=== PATIENT | male | born 1950 | race Caucasian/White ===

== ENCOUNTER 2019-03-18 16:04 | Observation (INO) | payer MEDICARE ==
[~2019-03-18] VITALS: Ht 177.8 cm; Wt 108.9 kg
[~2019-03-18 16:04] MED LIST: ASPI-1005 PO; ATOR40TA69 PO; LISI10TA7 PO; METO-408 PO; OMEP20CA12 PO; PRAS10TA6 PO
[2019-03-18] MEDS ORDERED: NITROGLYCERIN 1GM/1 INCH PACKET TD ONE (16:19)
[2019-03-18 16:24] LABS: BASOPHILS % (AUTO) 0.9 % (0.0-5.0); EOSINOPHILS % (AUTO) 2.4 % (0.0-8.0); HEMATOCRIT 43.2 % (42-54); MEAN CORPUSCULAR VOLUME 85.2 fL (79-99); MONOCYTES % (AUTO) 6.7 % (3.0-13.0); NEUTROPHILS % (AUTO) 57.5 % (40.0-77.0); PLATELET COUNT (AUTO) 255 K/uL (130-400); RED BLOOD CELL COUNT(AUTO) 5.07 MIL/uL (4.50-6.20); RED CELL DISTRIBUTION WIDTH 12.7 % (11.0-15.5); WHITE BLOOD COUNT (AUTO) 5.8 K/uL (4.8-10.8)
[2019-03-18 16:38] LABS: CREATININE 1.3 mg/dL (0.5-1.5); INR 1.01 (0.85-1.15); PARTIAL THROMBOPLASTIN TIME 28.4 SEC (26.3-35.5); POTASSIUM 4.5 mmol/L (3.5-5.1); PROTHROMBIN TIME 10.6 SEC (9.6-11.6)
[2019-03-18 16:41] LABS: ALBUMIN 3.8 g/dL (3.5-5.0); BILIRUBIN,TOTAL 0.5 mg/dL (0.2-1.0); TOTAL PROTEIN, SERUM 7.2 g/dL (6.0-8.3)
[2019-03-18] MEDS ORDERED: ACETAMINOPHEN 325 MG TAB ONE ×2 (17:23→20:47)
[2019-03-18] MEDS ORDERED: TRAMADOL HCL 50 MG TABLET PO PRN ×2 (20:45)
[2019-03-18] MEDS: NITROGLYCERIN 1GM/1 INCH PACKET TD SCH (20:45)
[2019-03-18] MEDS: FAMOTIDINE 20MG TAB 20 MG TAB PO SCH (21:00)
[2019-03-18] MEDS ORDERED: SODIUM CHLORIDE 0.9% 1000ML 1,000 ML IV ONE (22:21)
[2019-03-19] VITALS (13 sets, daily range): BP systolic 96–158; BP diastolic 49–77
--- NOTE | 2019-03-19 00:10 | NUR ---
ADMIT PT ADMITTED TO ROOM 420, AAOX3. CLAIMS OF HEADACHE. NOTED BRUISING AND EDEMA TO RT GROIN AREA AND IS TENDER TO TOUCH.ADMISSION CARE DONE. ADMISSION DATA BASE COMPLETED. CONTINUED IVF OF NS FROM ER REGULATED AT 100CC/HR VIA PIV G20 TO RLA. UPDATED PT'S MEDS IN THE COMPUTER. MEDICATED WITH ULTRAM PO FOR PAINS. PLACE NPO FROM NOW. TELE MONITORING STARTED. SCD'S APPLIED TO BLE. MARINE REPORTER IN TO DRAW BLOOD. KEPT COMFORTABLE IN BED. ORIENTED TO ROOM AND UNIT. CONSENT FOR HEART CATH DISCUSSED AND SIGNED BY PT, WITNESSED BY MEAL GRINDER TENDER. PLACED IN CHART. IN FOR MORE CARE AND MANAGEMENT. Addendum: 03/19/19 at 0101 by ESTRELLA YIN RN RN Amended: Links added.
[2019-03-19] MEDS: ACETAMINOPHEN 325 MG TAB PO PRN ×3 (03:26→18:34)
--- NOTE | 2019-03-19 03:26 | NUR ---
H/A PT CALLS FOR PAIN MEDICATION FOR HEADACHE. IT IS TOO SOON FOR TRAMADOL DOSE. TYLENOL PO GIVEN WITH SIPS OF WATER. KEPT NPO OTHERWISE. WILL RE-ASSESS PT. Addendum: 03/19/19 at 0404 by ESTRELLA YIN RN RN Amended: Links added.
[2019-03-19] MEDS: NITROGLYCERIN 1GM/1 INCH PACKET TD SCH ×3 (04:25→21:24)
--- NOTE | 2019-03-19 05:09 | NUR ---
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 REFERRED PT'S PAIN MEDS PT IS NPO. NEW MED ORDER GIVEN, PLEASE REFER TO CPOE. PT DENIES ANY NEEDS FOR PAIN MEDICATION AT THIS TIME.
[2019-03-19] MEDS ORDERED: MORPHINE SULFATE 2 MG/ML 1ML SYG IVP PRN (05:15)
[2019-03-19] MEDS: FAMOTIDINE 20MG TAB 20 MG TAB PO SCH ×2 (09:00→21:24)
[2019-03-19] MEDS: ASPIRIN 81MG TAB.CHEW PO SCH (10:18)
[2019-03-19] MEDS: SODIUM CHLORIDE 0.9% 1000ML 1,000 ML IV SCH ×3 (10:32→23:50)
[2019-03-19] MEDS ORDERED: PRASUGREL HCL 10 MG TABLET PO SCH (12:00)
--- NOTE | 2019-03-19 13:11 | NUR ---
Initial Assessment Patient lives with spouse, Lilibeth Bradford, . He has no home service. DME: [facility]. Patient is able to complete ADL's independently and drives. [facility] in [place]. DCP is home. Addendum: 03/19/19 at 1316 by SADIE VERDUZCO SS Amended: Links added.
[2019-03-19] MEDS ORDERED: NITROGLYCERIN 2 MG/VIAL VIAL IV ONE (14:13)
[2019-03-19] MEDS ORDERED: HEPARIN SODIUM 1000UNIT/ML 10ML VIAL ONE (14:13)
[2019-03-19] MEDS ORDERED: SODIUM BICARB 50MEQ 50ML VIAL ONE (14:13)
[2019-03-19] MEDS ORDERED: IOHEXOL 350 MG/ML 100ML INFUS..BTL IV ONE (14:14)
[2019-03-19] MEDS ORDERED: MIDAZOLAM HCL 1 MG/ML 2ML VIAL ONE ×3 (14:14→14:57)
[2019-03-19] MEDS ORDERED: IOHEXOL-350 50ML VIAL IV ONE (14:14)
[2019-03-19] MEDS ORDERED: LIDOCAINE HCL 2% 20ML ONE (14:14)
[2019-03-19] MEDS ORDERED: MEPERIDINE-PF 25 MG/ML SYG ONE ×3 (14:14→14:57)
[2019-03-19] MEDS ORDERED: NICARDIPINE HCL 25 MG/10 ML ML IV ONE (14:34)
--- NOTE | 2019-03-19 18:35 | NUR ---
pulled last 2ml from tr band and no bleeding noted. removed tr and applied [id number] gauze secured with tape. utilizing tgeach back method, instructed patient to guard his right wrist/hand for a couple of hours to ensure no bleeding due to bleeding during the removal of air from balloon. pt and verbalized understanding. rt radial pulse strong w cap refill good. 02sat =99% on rt index finger.
[2019-03-19] MEDS ORDERED: ATORVASTATIN CALCIUM 40 MG TABLET PO SCH (21:00)
[2019-03-19] MEDS: METOPROLOL TARTRATE 25 MG TAB PO SCH (21:24)
[2019-03-20 03:00] VITALS: BP 102/66
[2019-03-20] MEDS: NITROGLYCERIN 1GM/1 INCH PACKET TD SCH ×2 (04:45→09:28)
[2019-03-20 06:18] LABS: BASOPHILS % (AUTO) 0.5 % (0.0-5.0); EOSINOPHILS % (AUTO) 3.1 % (0.0-8.0); HEMATOCRIT 37.9 % (42-54); LYMPHOCYTES % (AUTO) 39.6 % (21.0-51.0); MEAN CORPUSCULAR HEMOGLOBIN 28.7 pg (27.0-33.0); MEAN CORPUSCULAR HGB CONC 33.5 g/dL (32.0-36.0); MEAN CORPUSCULAR VOLUME 85.7 fL (79-99); MONOCYTES % (AUTO) 7.6 % (3.0-13.0); NEUTROPHILS % (AUTO) 48.4 % (40.0-77.0); PLATELET COUNT (AUTO) 203 K/uL (130-400); RED BLOOD CELL COUNT(AUTO) 4.42 MIL/uL (4.50-6.20); RED CELL DISTRIBUTION WIDTH 12.4 % (11.0-15.5); WHITE BLOOD COUNT (AUTO) 3.8 K/uL (4.8-10.8)
[2019-03-20] MEDS: SODIUM CHLORIDE 0.9% 1000ML 1,000 ML IV SCH ×2 (06:30→12:28)
[2019-03-20 06:34] LABS: ALBUMIN 3.1 g/dL (3.5-5.0); BILIRUBIN,TOTAL 0.5 mg/dL (0.2-1.0); CREATININE 1.2 mg/dL (0.5-1.5); POTASSIUM 4.5 mmol/L (3.5-5.1); TOTAL PROTEIN, SERUM 5.9 g/dL (6.0-8.3)
[2019-03-20 07:30] VITALS: BP_SYST 108; BP_SYST 110; BP_DIAS 69; BP_DIAS 71
[2019-03-20] MEDS ORDERED: LISINOPRIL 10 MG TABLET PO SCH (09:00)
[2019-03-20] MEDS ORDERED: PANTOPRAZOLE SODIUM 40 MG TABLET.DR PO SCH (09:00)
[2019-03-20] MEDS ORDERED: PRASUGREL HCL 10 MG TABLET PO SCH (09:00)
[2019-03-20] MEDS ORDERED: NITROGLYCERIN 1GM/1 INCH PACKET TD SCH (09:30)
[2019-03-20] MEDS: METOPROLOL TARTRATE 25 MG TAB PO SCH (10:08)
[2019-03-20] MEDS: ASPIRIN 81MG TAB.CHEW PO SCH (10:08)
[2019-03-20] MEDS: FAMOTIDINE 20MG TAB 20 MG TAB PO SCH (10:08)
[2019-03-20 11:00] VITALS: BP 119/66
[2019-03-20] MEDS ORDERED: METO-408 PO (11:52)
[2019-03-20] MEDS ORDERED: AMLO2.5T2 PO (11:52)
[2019-03-21] MEDS ORDERED: AMLODIPINE BESYLATE 2.5 MG TAB PO SCH (09:00)
== END 2019-03-20 13:55 | disposition home or self-care (01) ==
LOC: EDH 16:04 → EDHIP 20:31 → 4CH 23:30
PROVIDERS: ADMIT Internal Medicine; ATTEND Internal Medicine
DX: I25.110 Atherosclerotic heart disease of native coronary artery with unstable angina pectoris (principal); I10 Essential (primary) hypertension; E66.9 Obesity, unspecified; R42 Dizziness and giddiness; E78.5 Hyperlipidemia, unspecified; E78.00 Pure hypercholesterolemia, unspecified; R59.0 Localized enlarged lymph nodes; Z90.89 Acquired absence of other organs; Z90.79 Acquired absence of other genital organ(s); Z85.46 Personal history of malignant neoplasm of prostate; Z95.5 Presence of coronary angioplasty implant and graft; Z79.82 Long term (current) use of aspirin; Z79.899 Other long term (current) drug therapy; Z88.0 Allergy status to penicillin; Z88.1 Allergy status to other antibiotic agents; Z88.2 Allergy status to sulfonamides; Z68.33 Body mass index [BMI] 33.0-33.9, adult
CPT/HCPCS: 36415 ×2; 76882; 80053 ×2; 84484 ×4; 85025 ×2; 85610; 85730; 93005 ×2; 93454; 93970; 96360; 96361; 99284; C1769; C1894 ×2; G0378 ×5; J1644 ×2; J2175 ×3; J2250 ×3; J3490 ×4; J7030 ×4; Q9965; Q9967 ×2; 99156; 99157

== ENCOUNTER → 2019-04-09 | Outpatient (CLI) | payer MEDICARE ==
[~2019-04-09] MED LIST changes: +AMLO2.5T2 PO; -LISI10TA7 PO
== END | disposition home or self-care (01) ==
LOC: SLP 20:38
PROVIDERS: ATTEND Internal Medicine Cardiovascular Disease
DX: G47.33 Obstructive sleep apnea (adult) (pediatric) (principal)
CPT/HCPCS: 95810

== ENCOUNTER → 2020-01-21 | Outpatient (CLI) | payer MEDICARE | END | disposition home or self-care (01) | LOC: RAH 12:50 | PROVIDERS: ATTEND Internal Medicine Cardiovascular Disease | DX: M50.122 Cervical disc disorder at C5-C6 level with radiculopathy (principal); I25.10 Atherosclerotic heart disease of native coronary artery without angina pectoris; R20.2 Paresthesia of skin; Z95.5 Presence of coronary angioplasty implant and graft; M48.02 Spinal stenosis, cervical region | CPT/HCPCS: 72141 ==

== ENCOUNTER → 2020-12-02 | Outpatient (CLI) | payer MEDICARE | END | disposition home or self-care (01) | LOC: SHCH 07:47 | PROVIDERS: ATTEND Internal Medicine Cardiovascular Disease | DX: I35.8 Other nonrheumatic aortic valve disorders (principal); I51.7 Cardiomegaly; E78.5 Hyperlipidemia, unspecified | CPT/HCPCS: 93306; 93356 ==

== ENCOUNTER → 2022-10-27 | Outpatient (CLI) | payer MEDICARE ==
[2022-10-27 12:39] LABS: BASOPHILS # (AUTO) 0.03 K/uL (0.00-0.20); BASOPHILS % (AUTO) 0.7 % (0.0-5.0); EOSINOPHILS # (AUTO) 0.06 K/uL (0.00-0.70); EOSINOPHILS % (AUTO) 1.3 % (0.0-8.0); HEMATOCRIT 42.4 % (42-54); IMMATURE GRANULOCYTE ABSOLUTE 0.02 K/uL (0-1); LYMPHOCYTES # (AUTO) 1.7 K/uL (1.0-4.8); LYMPHOCYTES % (AUTO) 38.2 % (21.0-51.0); MEAN CORPUSCULAR HEMOGLOBIN 29.6 pg (27.0-33.0); MEAN CORPUSCULAR HGB CONC 32.8 g/dL (32.0-36.0); MEAN CORPUSCULAR VOLUME 90.2 fL (79-99); MONOCYTES # (AUTO) 0.4 K/uL (0.1-1.0); MONOCYTES % (AUTO) 8.6 % (3.0-13.0); NEUTROPHILS # (AUTO) 2.3 K/uL (1.8-7.7); NEUTROPHILS % (AUTO) 50.8 % (40.0-77.0); PLATELET COUNT (AUTO) 229 K/uL (130-400); RED CELL DISTRIBUTION WIDTH 12.6 % (11.0-15.5); WHITE BLOOD COUNT (AUTO) 4.5 K/uL (4.8-10.8)
[2022-10-27 12:57] LABS: ALBUMIN 3.9 g/dL (3.5-5.0); BILIRUBIN,TOTAL 0.5 mg/dL (0.2-1.0); CREATININE 1.1 mg/dL (0.5-1.5); MAGNESIUM 1.9 mg/dL (1.80-2.40); POTASSIUM 4.9 mmol/L (3.5-5.1); T4 (THYROXINE) 6.7 ug/dL (4.7-13.3); THYROID STIMULATING HORMONE 1.63 uIU/mL (0.36-3.74); TOTAL PROTEIN, SERUM 7.1 g/dL (6.0-8.3)
== END | disposition home or self-care (01) ==
LOC: LAB 10:22
PROVIDERS: ATTEND Physician Assistant
DX: I10 Essential (primary) hypertension (principal); E78.5 Hyperlipidemia, unspecified
CPT/HCPCS: 36415; 80053; 80061; 83735; 83880; 84436; 84443; 84479; 84484; 85025

== ENCOUNTER → 2023-01-17 | Outpatient (CLI) | payer MEDICARE ==
[~2023-01-17] MED LIST changes: +REGADENOSON 0.4 MG/5 ML PF SYG IVP ONE
== END | disposition home or self-care (01) ==
LOC: SHCH 08:30
PROVIDERS: ATTEND Internal Medicine Cardiovascular Disease
DX: I25.119 Atherosclerotic heart disease of native coronary artery with unspecified angina pectoris (principal)
CPT/HCPCS: 78452; 96374; 93017; J2785; A9500 ×2

== ENCOUNTER 2023-04-07 07:33 | Day surgery (SDC) | payer MEDICARE ==
[2023-04-05 10:08] LABS: BASOPHILS # (AUTO) 0.02 K/uL (0.00-0.20); BASOPHILS % (AUTO) 0.2 % (0.0-5.0); EOSINOPHILS # (AUTO) 0.02 K/uL (0.00-0.70); EOSINOPHILS % (AUTO) 0.2 % (0.0-8.0); IMMATURE GRANULOCYTE ABSOLUTE 0.07 K/uL (0-1); LYMPHOCYTES # (AUTO) 1.9 K/uL (1.0-4.8); LYMPHOCYTES % (AUTO) 22.9 % (21.0-51.0); MEAN CORPUSCULAR HEMOGLOBIN 29.6 pg (27.0-33.0); MEAN CORPUSCULAR HGB CONC 33.3 g/dL (32.0-36.0); MONOCYTES # (AUTO) 0.4 K/uL (0.1-1.0); MONOCYTES % (AUTO) 4.7 % (3.0-13.0); NEUTROPHILS # (AUTO) 5.8 K/uL (1.8-7.7); NEUTROPHILS % (AUTO) 71.1 % (40.0-77.0); PLATELET COUNT (AUTO) 242 K/uL (130-400); RED BLOOD CELL COUNT(AUTO) 4.83 MIL/uL (4.50-6.20); RED CELL DISTRIBUTION WIDTH 12.9 % (11.0-15.5); WHITE BLOOD COUNT (AUTO) 8.1 K/uL (4.8-10.8)
[2023-04-05 10:11] LABS: APPEARANCE,URINE CLEAR (CLEAR); BILIRUBIN,URINE NEGATIVE (NEGATIVE); COLOR,URINE YELLOW (YELLOW); GLUCOSE, URINE (UA) NEGATIVE (NEGATIVE); KETONES,URINE NEGATIVE (NEGATIVE); LEUKOCYTE ESTERASE ,URINE NEGATIVE Leu/uL (NEGATIVE); NITRATE,URINE NEGATIVE (NEGATIVE); OCCULT BLOOD,URINE NEGATIVE (NEGATIVE); PH,URINE 5.5 (5.0-8.0); PROTEIN,URINE NEGATIVE (NEGATIVE); UROBILINOGEN,URINE 0.2 mg/dL (0.2-1.0)
[2023-04-05 10:12] LABS: ADD UA MICROSCOPIC NO
[2023-04-05 10:20] LABS: CREATININE 1.1 mg/dL (0.5-1.5); POTASSIUM 4.3 mmol/L (3.5-5.1)
[2023-04-05 10:22] VITALS: BP 146/76; PULSE 71; RESP 16
[2023-04-05 10:22] LABS: INR <= 0.93 (0.85-1.15); PROTHROMBIN TIME 10.7 SEC (9.6-11.6)
[2023-04-05 10:23] LABS: PARTIAL THROMBOPLASTIN TIME 29.3 SEC (26.3-35.5)
[2023-04-05 10:34] LABS: B-TYPE NATRIURETIC PEPTIDE 25 pg/mL (0-100)
[2023-04-07] VITALS (11 sets, daily range): BP systolic 126–147; BP diastolic 69–84; PULSE 61–78; RESP 10–19
[~2023-04-07] VITALS: Ht 175.3 cm; Wt 106.0 kg
[~2023-04-07 07:33] MED LIST changes: +AEC81 PO; -AMLO2.5T2 PO; -ASPI-1005 PO; +ATOR10 PO; -ATOR40TA69 PO; +MULT-1367 PO; -PRAS10TA6 PO; +PRED10TA3 PO; -REGADENOSON 0.4 MG/5 ML PF SYG IVP ONE
[2023-04-07] MEDS ORDERED: NITROGLYCERIN 0.4 MG SL TAB SL PRN (09:00)
[2023-04-07] MEDS: NITROGLYCERIN 0.4 MG SL TAB SL ONE (09:02)
[2023-04-07] MEDS: 0.9%NACL 1000ML 1,000 ML IV ONE (09:03)
[2023-04-07] MEDS ORDERED: ACETAMINOPHEN 500 MG TABLET ONE (10:15)
[2023-04-07] MEDS: ACETAMINOPHEN 500 MG TABLET PO ONE (10:20)
[2023-04-07] MEDS ORDERED: HEPARIN 10,000 UNIT/10ML (1,000 UNIT/ML) VIAL ONE (11:12)
[2023-04-07] MEDS ORDERED: IOHEXOL-350 50ML VIAL IV ONE (11:12)
[2023-04-07] MEDS ORDERED: NITROGLYCERIN 50MG VIAL ONE (11:12)
[2023-04-07] MEDS ORDERED: LIDOCAINE HCL 400MG/20ML VIAL ONE (11:12)
[2023-04-07] MEDS ORDERED: IOHEXOL 350 MG/ML 100ML INFUS..BTL IV ONE (11:12)
[2023-04-07] MEDS ORDERED: SODIUM BICARB 50MEQ 50ML VIAL 50 ML ONE (11:12)
[2023-04-07] MEDS ORDERED: NICARDIPINE 25MG INJ IV ONE (11:29)
[2023-04-07] MEDS ORDERED: MIDAZOLAM HCL 1 MG/ML 2ML VIAL ONE ×4 (11:35→12:12)
[2023-04-07] MEDS ORDERED: MEPERIDINE-PF 25 MG/ML SYG ONE ×4 (11:35→12:12)
[2023-04-07] MEDS ORDERED: CLOPIDOGREL 300MG TAB ONE (12:47)
[2023-04-07] MEDS ORDERED: 0.9%NACL 1000ML 1,000 ML IV SCH (13:00)
== END 2023-04-07 17:35 | disposition home or self-care (01) ==
LOC: DAH 07:33
PROVIDERS: ATTEND Internal Medicine Cardiovascular Disease
DX: R94.39 Abnormal result of other cardiovascular function study (principal); I25.110 Atherosclerotic heart disease of native coronary artery with unstable angina pectoris; I10 Essential (primary) hypertension; E78.5 Hyperlipidemia, unspecified; G47.33 Obstructive sleep apnea (adult) (pediatric); Z87.891 Personal history of nicotine dependence; Z72.89 Other problems related to lifestyle; Z79.01 Long term (current) use of anticoagulants; Z88.0 Allergy status to penicillin; Z79.1 Long term (current) use of non-steroidal anti-inflammatories (NSAID); Z88.2 Allergy status to sulfonamides; Z88.8 Allergy status to other drugs, medicaments and biological substances; Z82.49 Family history of ischemic heart disease and other diseases of the circulatory system; Z82.5 Family history of asthma and other chronic lower respiratory diseases; Z80.1 Family history of malignant neoplasm of trachea, bronchus and lung; Z83.79 Family history of other diseases of the digestive system; Z79.82 Long term (current) use of aspirin; Z79.899 Other long term (current) drug therapy; Z95.5 Presence of coronary angioplasty implant and graft; Z90.49 Acquired absence of other specified parts of digestive tract; Z98.890 Other specified postprocedural states
CPT/HCPCS: 80048; 83880; 85025; 85610; 85730; 81003; 36415; 71045; 93005 ×2; 93571; 93572; 85347 ×2; 93458; C9600 ×2; C1769 ×2; C1874 ×2; C1894; C1887; J3490 ×4; J7030; J1644 ×2; J2250 ×4; J2175 ×4; Q9967; A4215; A4222; A4221; A4663; A4216; A4606; Q9965; A4223 ×3; 96360; 96361; 99156; 99157